=== PATIENT | male | born 1990 | race Caucasian/White ===

== ENCOUNTER 2019-05-15 17:52 | Emergency (ER) | payer BC, SELFPAY ==
[2019-05-15 18:03] VITALS: BP 125/62; PULSE 81; RESP 16; TEMP 36.6; O2SAT 100
--- NOTE | 2019-05-15 18:35 | ED.GENADULT ---
HPI - General Adult General Chief complaint: Unspecified Stated complaint: medication refill History of Present Illness HPI narrative: Patient is a 28-year-old male who presents to urgent care via [facility] for medication refill. Patient reports history of asthma. He is requesting pro-air rescue inhaler to be refilled. States his previous PCP, Dr. Gloria, retired. Patient states it has been years since he has seen a primary care provider. He denies following up with a primary care as previously recommended at last visit in this facility. Patient has no current concerns or questions at this time. Related Data Home Medications Medication Instructions Recorded Confirmed epinephrine [Primatene Mist] 1 puff INHALATION ONCE 05/15/19 05/15/19 loratadine [Claritin] 10 mg PO DAILY 05/15/19 05/15/19 Allergies Allergy/AdvReac Type Severity Reaction Status Date / Time amoxicillin Allergy Hives Verified 05/15/19 18:11 Review of Systems Review of Systems: All systems reviewed & are unremarkable except as noted in HPI and below PMFSH Comments I have reviewed and agree with the patient's past medical, surgical, social, and family hx as documented by the RN. There is no relevant family history pertinent to the presenting complaint. Exam Narrative: Exam Narrative: GENERAL: Well-appearing, well-nourished, and in no acute distress. HEAD: Normocephalic, atraumatic. No sinus tenderness or facial swelling appreciated. EYES: PERRLA and EOMI. No evidence of erythema, swelling, or drainage. ENT: Bilateral external ears and ear canals normal. Bilateral TMs are normal.No TM perforation. Nares clear, no rhinorrhea or epistaxis. Bilateral turbinates without erythema/ swelling. Mucous membranes moist and pink. Uvula is midline without erythema and swelling. No evidence of petechial rash, cobblestoning, lesions, ulcers, erythema, swelling, exudates, peritonsillar abscess, tenting, or drooling. Breath odor and voice normal. NECK: Supple. No Lymphadenopathy or nuchal rigidity appreciated. CHEST: Bilateral lung [place] are clear to auscultation. No respiratory distress. No evidence of cough or pleuritic cp upon examination. HEART: Regular rate and rhythm. No murmur, gallop, or rub heard. EXTREMITIES: Normal range of motion. No edema. SKIN: Warm, dry, no rash. NEURO: No focal deficits. Alert and oriented x3. Course Vital Signs Vital signs: Vital Signs Temperature 98 F 05/15/19 18:03 Pulse Rate 81 05/15/19 18:03 Respiratory Rate 16 05/15/19 18:03 Blood Pressure 125/62 05/15/19 18:03 Pulse Oximetry 100 05/15/19 18:03 Temperature 98 F 05/15/19 18:03 Pulse Rate 81 05/15/19 18:03 Respiratory Rate 16 05/15/19 18:03 Blood Pressure 125/62 05/15/19 18:03 Pulse Oximetry 100 05/15/19 18:03 Medical Decision Making Differential Diagnosis Differential Diagnosis: Medication refill Medical Records Medical records reviewed: Yes I reviewed the patient's medical records. Vital Signs Vital Signs: Vital Signs Temperature 98 F 05/15/19 18:03 Pulse Rate 81 05/15/19 18:03 Respiratory Rate 16 05/15/19 18:03 Blood Pressure 125/62 05/15/19 18:03 Pulse Oximetry 100 05/15/19 18:03 Temperature 98 F 05/15/19 18:03 Pulse Rate 81 05/15/19 18:03 Respiratory Rate 16 05/15/19 18:03 Blood Pressure 125/62 05/15/19 18:03 Pulse Oximetry 100 05/15/19 18:03 Lab Data Lab results reviewed: Yes I reviewed the patient's lab results. Critical Care Time Critical Care Time Critical Care Time: No Discharge Plan Discharge Clinical Impression: Encounter for medication refill Patient Disposition: Home, Self-Care Condition: Stable Instructions: Medicine Refill (ED) Prescriptions: New albuterol sulfate [ProAir HFA] 90 mcg/actuation HFA aerosol inhaler 2 puff INHALATION QID PRN (Reason: shortness of breath or wheezing) Qty: 8.5 RF: 0 No Action loratadine [Claritin] 1
== END 2019-05-15 18:47 | disposition home or self-care (01) ==
PROVIDERS: Emergency Provider Nurse Practitioner Family
DX: Z76.0 Encounter for issue of repeat prescription (principal); J45.909 Unspecified asthma, uncomplicated
CPT/HCPCS: 99211; G0463